=== PATIENT | female | born 1985 | race Caucasian/White ===

== ENCOUNTER → 2022-05-03 | Day surgery (SDC) | payer BC ==
[~2022-05-03] MED LIST: AMBIEN10 MG PO; DESVENLAFAXINE100 MG PO; LASIX20 MG PO; LINZESS145 MCG PO; OZEMPIC0.25 MG/0. SQ
== END | disposition home or self-care (01) ==
LOC: OR 07:28
DX: K92.1 Melena (principal); K29.70 Gastritis, unspecified, without bleeding; K31.9 Disease of stomach and duodenum, unspecified; D64.9 Anemia, unspecified; J44.9 Chronic obstructive pulmonary disease, unspecified; K21.9 Gastro-esophageal reflux disease without esophagitis; E66.9 Obesity, unspecified; F41.9 Anxiety disorder, unspecified; F32.A Depression, unspecified; Z79.899 Other long term (current) drug therapy; Z68.35 Body mass index [BMI] 35.0-35.9, adult
CPT/HCPCS: J2704